=== PATIENT | female | born 1980 | race Caucasian/White ===

== ENCOUNTER 2017-09-29 21:32 | Emergency (ER) | payer OTHER ==
[~2017-09-29] VITALS: Ht 167.6 cm; Wt 82.5 kg
[2017-09-29 21:59] VITALS: BP 123/59; PULSE 93; RESP 16; TEMP 98.6; O2SAT 98
[2017-09-29] MEDS ORDERED: CEPH-460 PO (22:51)
--- NOTE | 2017-09-29 22:56 | PD ---
HPI Chief Complaint: ENT Complaint Time Seen by Provider: 22:45 Travel History International Travel<30 days: No Contact w/Intl Traveler<30days: No Traveled to known affect area: No History of Present Illness HPI 37-year-old white female presents emergency department with a 2 day history of fever, congestion, sore throat, sneezing and cough. She states that she has had strep throat in the past and that this feels the same. Pain is moderate. No alleviating factors. Exacerbated by swallowing. Patient denies any sputum production, shortness of breath, nausea, vomiting, abdominal pain or diarrhea. No dysuria frequency. PFSH Past Medical History Cardiovascular Problems: Yes (Murmur) Tetanus Vaccination: < 5 Years ?: Not Past Surgical History Narrative Surgical Cervical fusion Social History Alcohol Use: No Tobacco Use: No Substance Use: No Allergies-Medications (Allergen,Severity, Reaction): Coded Allergies: adhesive tape (Verified Allergy, Unknown, 09/29/17) codeine (Verified Allergy, Unknown, 09/29/17) morphine (Verified Allergy, Unknown, 09/29/17) Reported Meds & Prescriptions Reported Meds & Active Scripts Active Keflex (Cephalexin) 500 Mg Capsule 500 Mg PO Q6H 10 Days Review of Systems Except as stated in HPI: all other systems reviewed are Neg Physical Exam Narrative GENERAL: Well-developed, well-nourished in no acute distress. Nontoxic appearing. HEAD: Normocephalic, atraumatic. EYES: Pupils equal round and reactive. Extraocular motions intact. No scleral icterus. No injection or drainage. ENT: TMs clear without erythema. The external auditory canals clear. Nose: clear . Posterior pharynx is erythematous with enlarged exudative tonsils. Uvula midline. Airway patent. Positive tonsillar cervical adenopathy. NECK: Trachea midline.Supple, nontender, moves head freely. No central bony tenderness or spasm. CARDIOVASCULAR: Regular rate and rhythm without murmurs, gallops, or rubs. RESPIRATORY: Clear to auscultation. Breath sounds equal bilaterally. No wheezes , rales, or rhonchi. GASTROINTESTINAL: Abdomen soft, non-tender, nondistended. No hepato-splenomegaly , or palpable masses. No guarding. EXTREMITIES: No clubbing, cyanosis, or edema. No joint tenderness, effusion, or edema noted. BACK: Nontender without deformity or crepitance. No flank tenderness. Data Data Last Documented VS Vital Signs Date Time Temp Pulse Resp B/P (MAP) Pulse Ox O2 Delivery O2 Flow Rate FiO2 09/29/17 21:59 98.6 93 16 123/59 (80) 98 Orders Orders Ed Discharge Order (09/29/17 22:50) Cephalexin (Keflex) (09/29/17 23:00) MDM Medical Decision Making Medical Screen Exam Complete: Yes Emergency Medical Condition: Yes Medical Record Reviewed: Yes Differential Diagnosis MDM: High Differential diagnoses: Strep throat, viral pharyngitis, mono Narrative Course Patient is given Keflex 500 mg p.o. Patient states that she has had strep throat in the past and that amoxicillin typically does not work as well as Keflex and would like Keflex. Diagnosis Primary Impression: exudative pharyngitis Patient Instructions: General Instructions Additional Instructions: Rest. Force fluids. Saltwater gargles. Tylenol and Advil. Chloraseptic [place] Cepastat lozenge. Keflex. Follow-up with a primary care doctor in one week. Return to the ER if any problems. Med/Other Pt SpecificInfo: Prescription(s) given Scripts Cephalexin (Keflex) 500 Mg Capsule 500 MG PO Q6H for Infection for 10 Days, #40 CAP 0 Refills Prov: Abby Stark MD 09/29/17 Disposition: 01 DISCHARGE HOME Condition: Stable Frank Hughes Sep 29, 2017 22:56
[2017-09-29] MEDS ORDERED: CEPHALEXIN MONOHYDRATE 500 MG CAP PO ONE (23:00)
== END 2017-09-29 23:26 | disposition home or self-care (01) ==
LOC: NEPD 21:32
DX: J02.9 Acute pharyngitis, unspecified (principal); R09.81 Nasal congestion; R05 Cough; R01.1 Cardiac murmur, unspecified; Z88.5 Allergy status to narcotic agent
CPT/HCPCS: 99283